=== PATIENT | male | born 1995 | race Caucasian/White ===

== ENCOUNTER → 2017-09-29 | Outpatient (CLI) | payer OTHER ==
[~2017-09-29] MED LIST: FLEXERIL PO; ZANTAC 150MG T150 MG PO
== END ==
LOC: ULTRA 08:18
DX: K80.20 Calculus of gallbladder without cholecystitis without obstruction (principal); K76.0 Fatty (change of) liver, not elsewhere classified

== ENCOUNTER 2017-10-05 05:35 | Observation (INO) | payer OTHER ==
[~2017-10-05] VITALS: Ht 177.8 cm; Wt 108.9 kg
--- NOTE | ~2017-10-05 | H ---
[facility] [place] [address] HISTORY AND PHYSICAL Name: ALEM CAMILOOLATito Desai Room #: 422-P [facility] Jaqueline Escobedo#: [id number] Admission: 10/05/17 Attend Phys: Isidro Cast MD Discharge: 10/06/17 Date of : 89 Report #: [id number] THIS REPORT FOR: //name// CC: Isidro Steward MD DATE OF SERVICE: 10/05/2017 PREOPERATIVE DIAGNOSES: Cholecystitis, cholelithiasis. HISTORY OF PRESENT ILLNESS: The patient is a 22-year-old who has been having abdominal pain. This has been increasing over the last 2-3 weeks. The patient was seen by Dr. Steward last . Ultrasound on Monday did show he has gallstones. The patient has had some nausea and has had episode of vomiting and diarrhea. He has abdominal pain underneath the right ribs. It occasionally goes to his back, mostly it is in the front underneath the right rib. Pain is described as stabbing in nature. He has had 4-5 episodes that had been pretty severe in nature. He thinks this has been going on and off since March. The patient has been taking Zantac 150 mg for about a month. He has been missing work because of vomiting. This is related to eating, especially the vomiting part. The patient has had trouble with certain foods such as spicy foods. He had attack after eating chips and salsa. The patient has had issues with reflux in the past with acid tasting in the neck. The patient's mother and maternal grandfather have had gallbladder surgery. The patient's ultrasound showed a stone that measures 1.2 cm. Bile duct is normal. There is no wall thickening. The patient does have sludge within the gallbladder also. The patient is recommended to have his gallbladder removed to treat his pain. The patient is brought in for surgery. PAST MEDICAL HISTORY: The patient denies heart disease, denies high blood pressure, denies diabetes. No lung disease. Slightly fatty appearing liver on ultrasound. No previous liver disease. No kidney issue, no bleeding disorder, no history of blood clot. MEDICATIONS: Muscle relaxer because of the job that he does. ALLERGIES: He does not have any allergies. PAST SURGICAL HISTORY: No prior surgery. FAMILY HISTORY: The patient's mother and father did not have any problems. Mother has had gallbladder disease. SOCIAL HISTORY: The patient works for the [employer] work. The patient does not smoke, rarely drinks. [address] [address] HISTORY AND PHYSICAL Name: IVON CAMILO Giselle Room #: 422-P [facility].#: [id number] Admission: 10/05/17 Attend Phys: Isidro Cast MD Discharge: 10/06/17 Date of : [birth year] Report #: [id number] REVIEW OF SYSTEMS: No headache, chest pain, shortness of breath, or breathing issues. PHYSICAL EXAMINATION: GENERAL: The patient is a well-nourished male, in no acute distress. The patient is alert and oriented. HEENT: Pupils react to light. Extraocular muscles are intact. Oropharynx is clear. NECK: Soft and supple, no masses. LUNGS: Clear to auscultation. HEART: Regular rate and rhythm. No murmur or gallop. ABDOMEN: Soft, nondistended. No mass, guarding or rigidity. The patient does have localized tenderness in the right upper quadrant. EXTREMITIES: No cyanosis, clubbing, edema. IMPRESSION: The patient is a 22-year-old with symptomatic cholecystitis and cholelithiasis. The patient does have a mobile gallstone seen on ultrasound. His symptoms are fairly classic with stabbing pain located under the right ribcage. Spicy food intolerance. The patient has had episodes of vomiting in the last couple of weeks and missing work. The patient is recommended to have his gallbladder removed as treatment of his symptomatic gallbladder disease. Procedure discussed in detail, laparoscopic procedure discussed, risk of bleeding, infection, common bile duct injury was discussed. We will do liver function tests on the day of the surgery. The patient wishes to proceed. <ELECTRONICALLY SIGNED> By: Isidro Cast MD 10/10/17 1627 [id number] Isidro Cast MD /nt
--- NOTE | ~2017-10-05 | O ---
[facility] [place] [address] OPERATIVE REPORT Name: IVON CAMILO Room #: 422-P [facility] Jaqueline Escobedo#: [id number] Admission: 10/05/17 Attend Phys: Isidro Cast MD Discharge: 10/06/17 Date of : 89 Report #: [id number] THIS REPORT FOR: //name// CC: Isidro Steward MD DATE OF SERVICE: 10/05/2017 PREOPERATIVE DIAGNOSIS: Cholecystitis with cholelithiasis. POSTOPERATIVE DIAGNOSIS: Cholecystitis with cholelithiasis. PROCEDURE PERFORMED: Laparoscopic cholecystectomy with cholangiogram. ANESTHESIA: General. SURGEON: Isidro Cast MD COMPLICATIONS: None. BLOOD LOSS: 5 mL. DESCRIPTION OF PROCEDURE: With the patient under general anesthesia, abdomen was prepped and draped in a sterile fashion. Timeout was performed. Preoperative IV antibiotic was given. A 0.25% Marcaine was used to anesthetize the skin. About 2 cm incision was made infraumbilically. Fascia was identified. Fascia was grasped with hemostat and then under visualization 0 Vicryl sutures were placed on the fascial edges for retraction. Veress needle was then placed through the peritoneum. Abdominal cavity was then insufflated with CO2. After creating pneumoperitoneum pressure of 14, an 11 mm trocar was placed into the pneumoperitoneum, no harm to underlying tissue. The patient has a generous omentum. Two 5 mm trocars were placed in the right upper quadrant and another 5 mm trocar was placed in right epigastrium. The gallbladder was identified. The fundus of the gallbladder was lifted cephalad. The proximal gallbladder was then visualized. There is quite a bit of fat over the proximal gallbladder and over the triangle of Calot. Second grasper was placed on the proximal part of the gallbladder. The dissection was then carried out through the fat. After freeing this generous amount of fatty tissue, a tubular structure was then identified. Further cleaning of this area revealed that this is more likely the cystic artery. It overlapped the cystic duct. This is in a slightly atypical location. The artery was isolated, clipped x 2 proximally and 1 distally and then divided. Cystic duct was then isolated. The cystic duct was initially identified because it had more of a greenish tinge to it. Junction of the cystic duct to the gallbladder was isolated. The common duct could not be visualized due to the generous amount of fat that is over this [address] [address] OPERATIVE REPORT Name: IVON CAMILO Room #: 422-P [facility] Jaqueline Escobedo#: [id number] Admission: 10/05/17 Attend Phys: Isidro Cast MD Discharge: 10/06/17 Date of : 89 Report #: [id number] area. It was felt to be more medial and posteriorly located. The cystic duct was isolated. A clip was placed in the junction of cystic duct to the gallbladder. Opening was made in the cystic duct. Cholangiogram catheter was placed. There was some resistance to applying of the catheter ____. I was able to hold it with a clip. Fluoroscopic cholangiogram was obtained. The common bile duct filled out well. I did not see any filling defect. The cholangiogram catheter was identified in the cystic duct. The cholangiogram catheter was then removed. The proximal cystic duct was then clipped x 2 and then divided. There was a small posterior artery branch, this was clipped x 2. Gallbladder was freed from the liver bed. Gallbladder was able to be extracted through the infraumbilical port site. The patient did have a singular round stone. There was also a fair amount of cholesterol material, several of them that measured 3 to 4 mm. The liver bed was checked and hemostasis excellent. Irrigation was aspirated out. Trocars were then removed under visualization. CO2 was evacuated as much as possible. The infraumbilical fascial defect was closed with [id number] 0 Vicryl x 2. Skin was irrigated. Skin was closed with 5-0 PDS. Steri-Strip and Band-Aids were used for dressing. The patient tolerated the procedure well. <ELECTRONICALLY SIGNED> By: Isidro Cast MD 10/10/17 1627 [id number] [id number] Isidro Cast MD /vitaliy
[2017-10-05 07:45] VITALS: BP 110/56
[2017-10-05 08:25] LABS: ALBUMIN 4.1 g/dL (3.4-5.0); DIRECT BILIRUBIN 0.1 mg/dL (<0.1-0.3); TOTAL BILIRUBIN 0.5 mg/dL (<0.1-1.0); TOTAL PROTEIN 7.2 g/dL (6.4-8.2)
[2017-10-05 21:10] VITALS: BP 108/48
[2017-10-06 04:19] VITALS: BP 115/56
[2017-10-06 07:13] VITALS: BP 118/58
[2017-10-06] MEDS ORDERED: HYDROCODONE-AP1 EAC6 PO (15:14)
[2017-10-06 15:51] VITALS: BP 118/58
== END 2017-10-06 16:26 | disposition home or self-care (01) ==
LOC: OR 05:35 → TBA 05:36 → OR 09:45 → 4S 15:39 → 4E 16:11 → OR 16:12 → 4E 16:12
PROVIDERS: Surgery
DX: K80.10 Calculus of gallbladder with chronic cholecystitis without obstruction (principal); K21.9 Gastro-esophageal reflux disease without esophagitis; R11.10 Vomiting, unspecified; R19.7 Diarrhea, unspecified; Z72.89 Other problems related to lifestyle
CPT/HCPCS: 10783; 50010; 50101; 50411; 50555; 50558; 51489; 53307; 53310; 55245; 55317; 56462; 56525; 56526; 62110; 62900; 70005